=== PATIENT | female | born 1980 | race African-American/Black ===

== ENCOUNTER 2020-06-08 22:40 | Emergency (ER) | payer OTHER ==
[~2020-06-08] VITALS: Ht 170.2 cm; Wt 61.4 kg
[2020-06-09 01:49] VITALS: BP 124/80
[2020-06-09] MEDS ORDERED: SULFAMETHOX/TRIMETH DS 800-160 MG/TABLET PO ONE (02:15)
[2020-06-09] MEDS ORDERED: ACETAMINOPHEN 500 MG TABLET PO ONE (02:15)
== END 2020-06-09 02:41 | disposition home or self-care (01) ==
LOC: EMS 22:40
DX: K52.9 Noninfective gastroenteritis and colitis, unspecified (principal); K92.1 Melena; Z88.0 Allergy status to penicillin
CPT/HCPCS: 99283